=== PATIENT | female | born 1960 | race Caucasian/White ===

== ENCOUNTER → 2024-08-29 09:37 | Outpatient (CLI) | payer OTHER, SELFPAY ==
--- NOTE | 2024-08-29 09:40 | DI.MG.S_ITS ---
MM screening mammo BI: 08/29/2024. BI-RADS: 2 CLINICAL: 64-year old female for bilateral screening mammogram. Tyrer-Cuzick lifetime risk of 3.2%. No personal or first-degree family history of breast cancer. PRIOR EXAMS 11/11/2020, 08/07/2017. MAMMOGRAPHY TECHNIQUE: 2D and 3D (tomosynthesis) digital mammographic views obtained, with additional images as needed for full coverage. Current study was also evaluated with a Computer Aided Detection (CAD) system. DENSITY A. The breasts are almost entirely fatty. MAMMOGRAPHY FINDINGS Right: Benign-appearing mass noted on the right. There are no suspicious masses, calcifications, or other findings in the breast. No significant change from comparison. Left: No suspicious mass, asymmetry, microcalcification, or other abnormality seen. No significant change from comparison. IMPRESSION: Right * No evidence of malignancy with benign findings. Left * No evidence of malignancy. RECOMMENDATIONS Bilateral * Annual screening mammography. OVERALL ASSESSMENT CATEGORY BI-RADS-2: Benign. The [employer] recommends annual screening mammography beginning at age 40 for women with average risk of breast cancer. ELECTRONICALLY SIGNED: Carolyn Nuñez M.D. on 08/29/2024 at 01:22:39 PM PT Interpreting Station ID: [id number]
== END ==
PROVIDERS: Family Provider Family Medicine; PCP Family Medicine; Referring Provider Family Medicine; Visit Provider Family Medicine
DX: Z12.31 Encounter for screening mammogram for malignant neoplasm of breast (principal); R92.313 Mammographic fatty tissue density, bilateral breasts
CPT/HCPCS: 77063; 77067

== ENCOUNTER → 2025-05-01 09:52 | Outpatient (CLI) | payer OTHER, SELFPAY ==
--- NOTE | 2025-05-01 09:55 | DI.RAD.S_ITS ---
PROCEDURE: XR LUMBAR SPINE 2-3V INDICATIONS: PAIN TECHNIQUE: 3 views of the lumbar spine were acquired. COMPARISON: [facility], CR, XR HIP W PEL RT 2V, 05/01/2025, 9:51. FINDINGS: Bones: 5 [id number] vertebrae are present. There is minimal levoconvex thoracolumbar scoliotic curvature. No focal AP alignment abnormality is seen. No vertebral body compression fractures. No suspicious bony lesions. There is moderate disc space narrowing at L3-L4 at least moderate disc space narrowing at L4-L5 and L5-S1. Lower lumbar spine facet arthropathy is seen. Soft tissues: Overlying bowel gas pattern is normal. No suspicious soft tissue calcifications. Atherosclerotic calcification is noted. IMPRESSION: Focal lower lumbar spine degenerative changes are seen by plain film. If it would be helpful for clinical management decision making, please consider a dedicated, scheduled lumbar spine MRI for further evaluation (assuming that there is no contraindication). Dictated by: Fawad Garcia M.D. on 05/03/2025 at 19:31 Approved by: Fawad Garcia M.D. on 05/03/2025 at 19:32
--- NOTE | 2025-05-01 09:55 | DI.RAD.S_ITS ---
PROCEDURE: XR HIP W PEL IF DONE RT 2V INDICATIONS: PAIN TECHNIQUE: AP pelvis with lateral view(s) of the right hip(s). COMPARISON: [facility], CR, XR LUMBAR SPINE 2-3V, 05/01/2025, 9:51. FINDINGS: Bones: No fractures or dislocations. Pelvic ring appears intact. No suspicious bony lesions. There is mild superior joint space narrowing seen of both hips, with associated remodeling changes with subchondral sclerosis and osteophyte formation. Soft tissues: The visualized bowel gas pattern is normal. No suspicious soft tissue calcifications. IMPRESSION: Mild bilateral hip degenerative change can be seen. Dictated by: Fawad Garcia M.D. on 05/03/2025 at 19:32 Approved by: Fawad Garcia M.D. on 05/03/2025 at 19:33
== END ==
PROVIDERS: Family Provider Family Medicine; PCP Family Medicine; Referring Provider Family Medicine; Visit Provider Family Medicine
DX: M25.551 Pain in right hip (principal); M54.50 Low back pain, unspecified
CPT/HCPCS: 72100; 73502